=== PATIENT | male | born 1965 | race Caucasian/White ===

== ENCOUNTER 2018-01-27 23:52 | Inpatient (IN) ==
[2018-01-28] MEDS ORDERED: ASPIRIN 325 MG TABLET PO STA (00:38)
[2018-01-28 01:01] LABS: Basophils # 0.1 10*3/uL (0.0-0.2); Basophils % 0.9 % (0.0-0.8); Eosinophils # 0.3 10*3/uL (0.0-0.87); Eosinophils % 3.7 % (0.00-10.9); Hematocrit 43.5 VOL% (42.0-52.0); Hemoglobin 15.4 GM/DL (14.0-18.0); Immature Granulocytes % 0.7 %; Immature Granulocytes Absolute 0.06 #; Lymphocytes # 1.8 10*3/uL (1.4-4.0); Lymphocytes % 22.3 % (21.2-54.2); Mean Corpuscular HGB Conc 35.4 GM/DL (32-36); Mean Corpuscular Hemoglobin 31 PG (27-34); Mean Corpuscular Volume 86.1 FL (87-102); Mean Platelet Volume 10.1 FL (9.6-12.0); Monocytes # 0.8 10*3/uL (0.11-0.8); Monocytes % 9.3 % (1.7-12.7); Neutrophils # 5.2 10*3/uL (1.4-7.4); Neutrophils % 63.1 % (38.7-73.9); Platelet Count 166 T/CUMM (130-400); Red Blood Count 5.05 MC/CUMM (3.8-5.5); Red Cell Distribution Width 12.9 % (9.3-17.3); White Blood Count 8.2 T/CUMM (4-12)
[2018-01-28 01:06] LABS: Calcium 9.4 MG/DL (8.5-10.1); Osmolality,Calculated 282.3 MOS/KG (273-304); Potassium 3.1 MMOL/L (3.5-5.1)
[2018-01-28 01:07] LABS: PT Patient Result 10.9 SECS; Partial Thromboplastin Time 24.3 SECS (0-40)
[2018-01-28] MEDS ORDERED: POTASSIUM CHLORIDE 20 MEQ TABLET PO PRN (02:08)
[2018-01-28] MEDS ORDERED: NITROGLYCERIN SL 0.4 MG TABLET SL PRN ×2 (05:14→10:35)
[2018-01-28] MEDS ORDERED: MORPHINE 4 MG/1 ML VIAL IM PRN (05:14)
[2018-01-28] MEDS ORDERED: ZALEPLON 5 MG CAPSULE PO PRN (10:38)
[2018-01-28] MEDS ORDERED: ALUMINUM/MAGNES/SIMETH MAX STR 30 ML UDCUP PO PRN (10:38)
[2018-01-28] MEDS: VALSARTAN 160 MG TABLET PO SCH ×2 (11:03→21:19)
[2018-01-28] MEDS: ATORVASTATIN 80 MG TABLET PO SCH (21:19)
[2018-01-28] MEDS: ASPIRIN EC 81 MG TABLET PO SCH (21:19)
[2018-01-28] MEDS: CLOPIDOGREL 75 MG TABLET PO SCH (21:19)
[2018-01-28] MEDS: CHLORTHALIDONE 25 MG TABLET PO SCH (21:19)
[2018-01-28] MEDS: MULTIVITAMIN (BEROCCA) TABLET PO SCH (21:19)
[2018-01-29 06:24] LABS: Risk Ratio 2.31; VLDL CHOLESTEROL 24.6 MG/DL
[2018-01-29] MEDS: VALSARTAN 160 MG TABLET PO SCH ×2 (09:02→20:45)
[2018-01-29 09:23] LABS: Calcium 8.9 MG/DL (8.5-10.1); Osmolality,Calculated 281.3 MOS/KG (273-304); Potassium 4.4 MMOL/L (3.5-5.1)
[2018-01-29] MEDS ORDERED: MAGNESIUM SULF RIDER 2 GM in PREMIX 1 EACH IV PRN ×2 (11:12→11:15)
[2018-01-29] MEDS ORDERED: POTASSIUM CHLORIDE RIDER 10 MEQ in PREMIX 1 EACH IV PRN ×2 (11:12→11:15)
[2018-01-29] MEDS: ATORVASTATIN 80 MG TABLET PO SCH (20:44)
[2018-01-29] MEDS: ASPIRIN EC 81 MG TABLET PO SCH (20:45)
[2018-01-29] MEDS: MULTIVITAMIN (BEROCCA) TABLET PO SCH (20:45)
[2018-01-29] MEDS: CHLORTHALIDONE 25 MG TABLET PO SCH (20:45)
[2018-01-29] MEDS: CLOPIDOGREL 75 MG TABLET PO SCH (20:45)
[2018-01-30] MEDS: SODIUM CHLORIDE 0.9% 1,000 ML IV SCH ×4 (01:18→21:54)
[2018-01-30] MEDS ORDERED: ASPIRIN 325 MG TABLET PO ONE (06:00)
[2018-01-30] MEDS ORDERED: DIAZEPAM 5 MG TABLET PO ONE (06:00)
[2018-01-30] MEDS ORDERED: diphenhydrAMINE CAP 25 MG CAPSULE PO ONE (06:00)
[2018-01-30] MEDS: VALSARTAN 160 MG TABLET PO SCH ×2 (08:34→21:27)
[2018-01-30] MEDS ORDERED: MIDAZOLAM 2 MG/2 ML VIAL ONE ×2 (08:51→09:01)
[2018-01-30] MEDS ORDERED: LIDOCAINE 1% 20 ML VIAL ONE (08:51)
[2018-01-30] MEDS ORDERED: fentaNYL 100 MCG/2 ML VIAL ONE (08:51)
[2018-01-30] MEDS ORDERED: diphenhydrAMINE 50 MG/1 ML VIAL ONE (09:04)
[2018-01-30] MEDS ORDERED: BIVALIRUDIN 250 MG VIAL IV ONE (09:12)
[2018-01-30] MEDS ORDERED: NITROGLYCERIN DRIP 50 MG/250 ML BOTTLE IV ONE (09:36)
[2018-01-30] MEDS ORDERED: HEPARIN/NACL 0.9% 2 UNITS/ML 500 ML IV ONE (09:40)
[2018-01-30] MEDS ORDERED: CLOPIDOGREL 300 MG TABLET ONE (10:07)
[2018-01-30] MEDS: FAMOTIDINE 20 MG TABLET PO SCH (21:27)
[2018-01-30] MEDS: ASPIRIN EC 81 MG TABLET PO SCH (21:27)
[2018-01-30] MEDS: ATORVASTATIN 80 MG TABLET PO SCH (21:27)
[2018-01-30] MEDS: CHLORTHALIDONE 25 MG TABLET PO SCH (21:27)
[2018-01-30] MEDS: CLOPIDOGREL 75 MG TABLET PO SCH (21:27)
[2018-01-30] MEDS: MULTIVITAMIN (BEROCCA) TABLET PO SCH ×2 (22:55→23:25)
[2018-01-31 05:34] LABS: Basophils # 0.1 10*3/uL (0.0-0.2); Basophils % 0.8 % (0.0-0.8); Eosinophils # 0.3 10*3/uL (0.0-0.87); Eosinophils % 3.2 % (0.00-10.9); Hematocrit 39.8 VOL% (42.0-52.0); Hemoglobin 14.5 GM/DL (14.0-18.0); Immature Granulocytes % 0.8 %; Immature Granulocytes Absolute 0.07 #; Lymphocytes # 1.6 10*3/uL (1.4-4.0); Lymphocytes % 17.9 % (21.2-54.2); Mean Corpuscular HGB Conc 36.4 GM/DL (32-36); Mean Corpuscular Hemoglobin 31 PG (27-34); Mean Corpuscular Volume 84.1 FL (87-102); Mean Platelet Volume 9.7 FL (9.6-12.0); Monocytes # 0.7 10*3/uL (0.11-0.8); Monocytes % 8.1 % (1.7-12.7); Neutrophils % 69.2 % (38.7-73.9); Platelet Count 143 T/CUMM (130-400); Red Blood Count 4.73 MC/CUMM (3.8-5.5); Red Cell Distribution Width 12.9 % (9.3-17.3); White Blood Count 8.7 T/CUMM (4-12)
[2018-01-31] MEDS: SODIUM CHLORIDE 0.9% 1,000 ML IV SCH (05:42)
[2018-01-31 05:49] LABS: Calcium 8.7 MG/DL (8.5-10.1); Osmolality,Calculated 282.3 MOS/KG (273-304); Potassium 3.6 MMOL/L (3.5-5.1)
[2018-01-31] MEDS ORDERED: TICAGRELOR 90 MG TABLET PO ONE (06:35)
[2018-01-31 08:04] VITALS: BP 114/76
[2018-01-31] MEDS: FAMOTIDINE 20 MG TABLET PO SCH (08:10)
[2018-01-31] MEDS: VALSARTAN 160 MG TABLET PO SCH (08:10)
[2018-01-31] MEDS ORDERED: TICAGRELOR 90 MG TABLET PO SCH (21:00)
== END 2018-01-31 08:19 | disposition home or self-care (01) | DRG 247 ==
LOC: N.ED 23:52 → N.EDINP 23:52 → N.TELEN 01-28 05:13
PROVIDERS: ADMIT Internal Medicine Cardiovascular Disease; ATTEND Internal Medicine Cardiovascular Disease
PROC: CLCCHCL (ICD-10-PCS; 2018-01-30 09:15)

== ENCOUNTER 2022-04-25 16:49 | Observation (INO) ==
[2022-04-25 17:17] LABS: Basophils # 0.1 10*3/uL (0.0-0.2); Basophils % 1.3 % (0.0-0.8); Eosinophils # 0.2 10*3/uL (0.0-0.87); Eosinophils % 2.9 % (0.00-10.9); Hematocrit 49.5 VOL% (42.0-52.0); Hemoglobin 16.6 GM/DL (14.0-18.0); Immature Granulocytes % 0.7 %; Immature Granulocytes Absolute 0.06 #; Lymphocytes # 1.6 10*3/uL (1.4-4.0); Lymphocytes % 20.1 % (21.2-54.2); Mean Corpuscular HGB Conc 33.5 GM/DL (32-36); Mean Corpuscular Volume 86.2 FL (87-102); Mean Platelet Volume 10.3 FL (9.6-12.0); Monocytes # 0.7 10*3/uL (0.11-0.8); Monocytes % 8.8 % (1.7-12.7); Neutrophils % 66.2 % (38.7-73.9); Platelet Count 191 T/CUMM (130-400); Red Blood Count 5.74 MC/CUMM (3.8-5.5); Red Cell Distribution Width 13.2 % (9.3-17.3); White Blood Count 8.2 T/CUMM (4-12)
[2022-04-25 17:35] LABS: Bilirubin,Total 0.6 MG/DL (0.20-1.00); Calcium 9.3 MG/DL (8.5-10.1); Osmolality,Calculated 283.1 MOS/KG (273-304); Total Protein 6.8 G/DL (6.4-8.2)
[2022-04-25] MEDS ORDERED: HYDROmorphone 1 MG/1 ML SYRINGE IV PRN (18:39)
[2022-04-25] MEDS ORDERED: ONDANSETRON 4 MG/2 ML VIAL IV PRN (18:39)
[2022-04-25] MEDS ORDERED: NITROGLYCERIN SL 0.4 MG TABLET SL PRN (18:41)
[2022-04-25] MEDS ORDERED: LABETALOL 100 MG/20 ML VIAL IV PRN (18:44)
[2022-04-25] MEDS ORDERED: ATORVASTATIN 80 MG TABLET PO SCH (21:00)
[2022-04-25] MEDS ORDERED: CHLORTHALIDONE 25 MG TABLET PO SCH (21:00)
[2022-04-26] MEDS ORDERED: DIAZEPAM 5 MG TABLET PO ONE (06:22)
[2022-04-26] MEDS ORDERED: diphenhydrAMINE CAP 50 MG CAPSULE PO ONE (06:22)
[2022-04-26] MEDS ORDERED: ASPIRIN 325 MG TABLET PO ONE (06:30)
[2022-04-26] MEDS: SODIUM CHLORIDE 0.9% 1,000 ML IV SCH ×2 (07:41→15:50)
[2022-04-26] MEDS ORDERED: PANTOPRAZOLE 40 MG TABLET PO SCH (09:00)
[2022-04-26] MEDS ORDERED: HEPARIN/NACL 0.9% 2 UNITS/ML 2,000 UNIT/1,000 ML BAG IV ONE (10:43)
[2022-04-26] MEDS ORDERED: MIDAZOLAM 2 MG/2 ML VIAL ONE (11:02)
[2022-04-26] MEDS ORDERED: fentaNYL 100 MCG/2 ML VIAL ONE (11:03)
[2022-04-26] MEDS ORDERED: HEPARIN 5,000 UNIT/1 ML VIAL ONE (11:19)
[2022-04-26] MEDS ORDERED: NITROGLYCERIN DRIP 50 MG/250 ML BOTTLE IV ONE (11:34)
[2022-04-26] MEDS ORDERED: [UNRECOGNIZED DRUG - REMARK] TRANSLING PRN (11:49)
[2022-04-26] MEDS ORDERED: ALBUTEROL 2.5 MG/3 ML NEB RESP TX PRN (11:49)
[2022-04-26 16:16] VITALS: BP 167/78
[2022-04-26] MEDS ORDERED: ASPIRIN EC 81 MG TABLET PO SCH (21:00)
[2022-04-26] MEDS ORDERED: EZETIMIBE 10 MG TABLET PO SCH (21:00)
[2022-04-26] MEDS ORDERED: VALSARTAN 160 MG TABLET PO SCH (21:00)
[2022-04-26] MEDS ORDERED: NON-FORMULARY MEDICATION (Chlorpheniramine Maleate [Chlortabs] 4 mg Tablet) PO SCH (21:00)
[2022-04-27] MEDS ORDERED: ISOSORBIDE MONONITRATE 30 MG TABLET PO SCH (09:00)
== END 2022-04-26 18:10 | disposition home or self-care (01) ==
LOC: N.ED 16:49 → INTOOBSV 18:39 → N.EDINP 18:39 → N.TELES 21:25
PROVIDERS: ADMIT Internal Medicine Cardiovascular Disease; ATTEND Internal Medicine Cardiovascular Disease